=== PATIENT | male | born 1995 | race Caucasian/White ===

== ENCOUNTER 2016-09-22 16:30 | Emergency (ER) | payer OTHER ==
[~2016-09-22] VITALS: Ht 177.8 cm; Wt 80.0 kg
[2016-09-22 16:38] VITALS: TEMP 36.8; Ht 177.8 cm; Wt 80.0 kg
[2016-09-22] MEDS ORDERED: IBUPROFEN 800 MG TAB PO STA (16:45)
--- NOTE | 2016-09-22 16:53 | EMERGENCY ROOM VISIT NOTE ---
ED Visit Note First contact with patient: 16:41 Chief Complaint: LEFT Ankle Injury History of Present Illness: This patient is a 21-year-old male who presents to the Emergency Department this afternoon for evaluation of their LEFT Ankle Injury. Patient states that they injured the ankle while twisting his ankle awkwardly while running. They report moderate pain over the lateral aspect of the ankle after inverting the ankle. Pain is worse with ambulation. They deny any numbness or tingling into the distal extremity including the toes. They deny any pain extending into the affected foot or leg. Patient reports no previous fractures of the affected ankle. Patient rates his current discomfort as an 8/10. Patient has tried nothing. Medications: No current medications. Allergies: No known allergies. PMH: No pertinent past medical history. SHx: Patient is a 21-year-old [employer] student who lives with roommates. ROS: All pertinent positive and negative review of systems are appropriately documented in the History of Present Illness. Physical Exam: VITAL SIGNS - Vital signs and nursing notes were reviewed. GENERAL - 21-year-old male appearing his stated age and in noticeable discomfort throughout the exam. MUSCULOSKELETAL - LEFT ankle with moderate edema noted to the lateral malleolus. No ecchymosis, erythema, or laceration. Moderate tenderness to palpation appreciated over the lateral malleolus. No tenderness extending into the foot or up the leg. +3/5 strength appreciated LEFT versus right secondary to patient discomfort. Pt with limited AROM at affected joint secondary to patient discomfort. ANTERIOR DRAWER TEST: Positive production of pain. EVERSION TEST: Unremarkable. INVERSION TEST: Positive production of pain. SQUEEZE TEST: Unremarkable. NEUROLOGIC/VASCULAR - Neurovascularly intact distally with +3/5 dorsalis pedis pulses palpated bilaterally. LEFT sensation to light and sharp touch appreciated distally. IMAGING: LEFT ANKLE 3 VIEWS HISTORY: Left ankle injury - lateral pain COMPARISON: None. FINDINGS: There is no fracture or dislocation. Lateral soft tissue swelling. No radiopaque foreign bodies. IMPRESSION: No fractures. ED Course: Patient was seen and evaluated by myself. Patient was provided an ice pack for comfort. Patient was provided 800 mg Motrin orally for their complaint of pain. X-rays were obtained of the affected ankle. Imaging results as above. Images were discussed and reviewed with the patient who acknowledges understanding. Patient was provided a Gel Ankle Splint for their comfort. He has crutches he will use. Patient will utilize over-the counter medications for pain control at home. Patient educated on worrisome symptoms for return visit to the emergency department. Patient with follow-up with their primary care provided in 4-5 days if their symptoms are not improving. Patient discharged to home in good condition. Impression: LEFT Ankle Sprain Discharge Instructions: You have been treated in the Emergency Department for your LEFT Ankle Sprain. For pain control, you can use the following epgc-cfs-sytigss medicines (if >12 yo): - Regular strength (325mg/tab) Tylenol (acetaminophen) 2 tabs every 4-6 hours as needed. Do not exceed 12 tablets in a 24 hour period. Avoid taking more than 4 grams (4000 mg) of Tylenol per day. This includes any other sources of acetaminophen you may take on a regular basis. - Regular strength (200 mg/tab) Advil (ibuprofen) 1-2 tabs every 4-6 hours as needed. Do not exceed a dose of 3200 mg per day. If this is a recent injury (<24 hrs), ice can be applied to the area of pain for the first 3 days to help decrease pain and inflammation. Please use the crutches and ankle splint until you are able to ambulate without discomfort. You can continue to use the ankle splint for the next 1-2 weeks to help with ankle stability. Follow-up with your primary care provider or Orthopedic Surgeon in 4-5 days if your symptoms are not improving despite the treatment plan outlined above. Return to the Emergency Department if your current symptoms worsen despite treatment course outlined above, or if you develop any of the following symptoms : intractable pain despite aforementioned treatment course or new onset of numbness or tingling of the foot. Problem List Medical Problems: (1) Concussion Status: Resolved (2) Seizure Status: Resolved Current/Historical Medications No Active Prescriptions or Reported Meds Allergies Coded Allergies: No Known Allergies (Unverified , 09/22/16) Vital Signs Date Time Temp Pulse Resp B/P Pulse Ox O2 Delivery O2 Flow Rate FiO2 09/22/16 17:29 99 129/79 99 Room Air 09/22/16 16:38 36.8 80 18 118/64 96 Room Air Medications Administered Medications (Trade) Dose Ordered Sig/Clifford Route Start Time Stop Time Status Last Admin Dose Admin Ibuprofen (Motrin Tab) 800 mg NOW STAT PO 09/22/16 16:45 09/22/16 16:47 DC 09/22/16 16:45 800 MG Departure Information Impression Primary Impression: Left ankle sprain Dispostion Home / Self-Care Condition GOOD Prescriptions No Active Prescriptions or Reported Meds Referrals No Doctor, Assigned (PCP) Patient Instructions Ankle Sprain, [facility] Additional Instructions You have been treated in the Emergency Department for your LEFT Ankle Sprain. For pain control, you can use the following qltj-odg-ggcpvgg medicines (if >12 yo): - Regular strength (325mg/tab) Tylenol (acetaminophen) 2 tabs every 4-6 hours as needed. Do not exceed 12 tablets in a 24 hour period. Avoid taking more than 4 grams (4000 mg) of Tylenol per day. This includes any other sources of acetaminophen you may take on a regular basis. - Regular strength (200 mg/tab) Advil (ibuprofen) 1-2 tabs every 4-6 hours as needed. Do not exceed a dose of 3200 mg per day. If this is a recent injury (<24 hrs), ice can be applied to the area of pain for the first 3 days to help decrease pain and inflammation. Please use the crutches and ankle splint until you are able to ambulate without discomfort. You can continue to use the ankle splint for the next 1-2 weeks to help with ankle stability. Follow-up with your primary care provider or Orthopedic Surgeon in 4-5 days if your symptoms are not improving despite the treatment plan outlined above. Return to the Emergency Department if your current symptoms worsen despite treatment course outlined above, or if you develop any of the following symptoms : intractable pain despite aforementioned treatment course or new onset of numbness or tingling of the foot. Problem Qualifiers Primary Impression: Left ankle sprain Encounter type: initial encounter Involved ligament of ankle: unspecified ligament Qualified Codes: S93.402A - Sprain of unspecified ligament of left ankle, initial encounter
--- NOTE | 2016-09-22 17:12 | DIAGNOSTIC IMAGING REPORT ---
LEFT ANKLE 3 VIEWS HISTORY: Left ankle injury - lateral pain COMPARISON: None. FINDINGS: There is no fracture or dislocation. Lateral soft tissue swelling. No radiopaque foreign bodies. IMPRESSION: No fractures. Electronically signed by: Alejandro Crook M.D. 09/22/2016 5:10 PM Dictated Date/Time: 09/22/2016 5:09 PM
[2016-09-22 17:29] VITALS: BP 129/79; PULSE 99; O2SAT 99
== END 2016-09-22 17:34 | disposition home or self-care (01) ==
LOC: C.EDB 16:32 → C.EDD 17:34
DX: S93.402A Sprain of unspecified ligament of left ankle, initial encounter (principal); X50.9XXA Other and unspecified overexertion or strenuous movements or postures, initial encounter; Y93.02 Activity, running